=== PATIENT | female | born 1965 | race Caucasian/White ===

== ENCOUNTER → 2017-02-25 | Outpatient (CLI) | payer BC ==
[~2017-02-25] MED LIST: BUPRTAB51 PO; CALC500C3 PO; ESTR0.3T PO; LEVO-14 PO; PEDICHW50 PO
--- NOTE | 2017-02-26 07:53 | MAMMOGRAPHY REPORT ---
BILATERAL DIGITAL SCREENING MAMMOGRAM TOMOSYNTHESIS WITH CAD: 02/25/2017 CLINICAL HISTORY: Routine screening. Patient has no complaints. TECHNIQUE: Breast tomosynthesis in addition to standard 2D mammography was performed. Current study was also evaluated with a Computer Aided Detection (CAD) system. COMPARISON: Comparison is made to exams dated: 09/29/2011 mammogram, 10/01/2010 ultrasound, 10/01/2010 m ammogram, 09/26/2010 mammogram, 09/25/2009 mammogram - [facility], and 09/21/2008. BREAST COMPOSITION: There are scattered areas of fibroglandular density in both breasts. FINDINGS: There is a possible new grouping of microcalcifications in the upper outer middle one thir d of the right breast, for which additional spot magnification views are recommended. An asymmetry in the medial left breast is unchanged on prior mammograms dating back to at least 2007, therefore likely benign. No other suspicious mass, architectural distortion or cluster of microcalc ifications is seen. IMPRESSION: ACR BI-RADS CATEGORY 0: INCOMPLETE EVALUATION: NEED ADDITIONAL IMAGING EVALUATION The possible new grouping of microcalcifications in the upper outer quadrant of the right breast need s additional evaluation. The patient will be called to schedule an appointment. Approximately 10% of breast cancers are not detected with mammography. A negative mammographic report should not delay biopsy if a clinically suggestive mass is present. Silva Velazquez M.D. ay/:02/25/2017 16:02:46 Loan Inspector: Neyda LIN)(Terese), [facility] letter sent: Addl Imaging 0 BI-RADS Code: ACR BI-RADS Category 0: Incomplete Evaluation: Need Additional Imaging Evaluation
== END | disposition home or self-care (01) ==
LOC: C.MAMM 14:19
PROVIDERS: ATTEND Internal Medicine
DX: Z12.31 Encounter for screening mammogram for malignant neoplasm of breast (principal)

== ENCOUNTER → 2017-03-11 | Outpatient (CLI) | payer BC ==
--- NOTE | 2017-03-12 14:34 | MAMMOGRAPHY REPORT ---
UNILATERAL RIGHT DIGITAL DIAGNOSTIC MAMMOGRAM: 03/11/2017 CLINICAL HISTORY: Callback from screening mammogram for right breast calcifications. TECHNIQUE: Spot magnification right cc and ML views were obtained. COMPARISON: Comparison is made to exams dated: 02/25/2017 mammogram, 09/29/2011 mammogram, 09/26/2010 angela mogram, 09/25/2009 mammogram - [facility], 09/21/2008, and 09/30/2007. BREAST COMPOSITION: There are scattered areas of fibroglandular density in the right breast. FINDINGS: Spot magnification views of the right breast demonstrate small similar-appearing clusters of calcifications within the right upper outer quadrant. The calcifications are predominantly puncta te and amorphous. When compared to prior exams, the calcifications were likely present on some of th e prior exams including the 2011 exam although it is difficult to make an accurate comparison due to differences in technique between the current and prior exam (currently using [employer] equipment, previ ously using [employer] equipment). The calcifications are probably benign given the probable long-term stabi lity. Other scattered benign-appearing calcifications are seen in the right superior breast on the a dditional views. IMPRESSION: ACR-BI-RADS CATEGORY 3: PROBABLY BENIGN Small similar-appearing clusters of calcifications within the right upper outer quadrant were likely present on the 2012 exam and are probably benign. Recommend follow-up diagnostic tomosynthesis mammo grams of the right breast in 6 months to confirm stability on spot magnification views. The patient has been verbally notified of the results. Approximately 10% of breast cancers are not detected with mammography. A negative mammographic report should not delay biopsy if a clinically suggestive mass is present. Gia Galaviz M.D. ah/:03/11/2017 14:31:20 Cement Car Dumper: Skylar HOROWITZ(R)(M), [facility] letter sent: Follow Up Recommended 3 BI-RADS Code: ACR-BI-RADS Category 3: Probably Benign
== END | disposition home or self-care (01) ==
LOC: C.MAMM 14:01
PROVIDERS: ATTEND Internal Medicine
DX: R92.0 Mammographic microcalcification found on diagnostic imaging of breast (principal)